=== PATIENT | female | born 1965 | race Two or more races ===

== ENCOUNTER → 2017-04-19 | Outpatient (CLI) | payer MEDICAID | LOC: CIMAGING 09:40 | DX: Z12.31 Encounter for screening mammogram for malignant neoplasm of breast (principal) ==

== ENCOUNTER → 2018-05-27 | Outpatient (CLI) | payer MEDICAID | LOC: CIMAGING 09:11 | DX: Z12.31 Encounter for screening mammogram for malignant neoplasm of breast (principal) ==